=== PATIENT | female | born 1935 | race Caucasian/White ===

== ENCOUNTER → 2018-02-25 | Outpatient (CLI) | payer OTHER ==
[~2018-02-25] MED LIST: PREDNISONE 1 MG1 M1 PO; RAYOS2 MG PO; VITAMIN B-12500 MCG PO; VITAMIN D1000 UNI1 PO; VITAMINC500 PO
--- NOTE | 2018-02-25 13:10 | 2DMMODE ---
[place] [address] 2 D/M-MODE ECHOCARDIOGRAM Name: ROSA ELENA PRAKASH [id number] Admission: 02/25/18 Attend Phys: Joel Roth Discharge: Date of : 37 Date of Service: 02/25/18 1309 Report #: [id number] THIS REPORT FOR: //name// APPROVED REPORT Study performed: 02/25/2018 09:10:27 EXAM: Comprehensive 2D, Doppler, and color-flow Echocardiogram Patient Location: Out-Patient Status: routine BSA: 1.76 HR: 58 bpm BP: 120/72 mmHg Other Information Study Quality: Good Indications Syncope 2D Dimensions LVEF(%): 75.64 (>50%) IVSd: 9.14 (7-11mm) LVOT Diam: 20.11 (18-24mm) LVDd: 37.57 mm PWd: 9.98 (7-11mm) Ascending Ao: 31.52 (22-36mm) LVDs: 21.16 (25-40mm) Aortic Root: 23.23 mm Bragg's LVEF: 75.64 % Volumes Left Atrial Volume (Systole) LA ESV Index: 9.30 mL/m2 Aortic Valve AoV Peak Arash.: 1.03 m/s AO Peak Gr.: 4.27 mmHg LVOT Max P.54 mmHg AO Mean Gr.: 2.15 mmHg LVOT Mean P.96 mmHg LVOT Max V: 1.07 m/s AO V2 VTI: 20.56 cm LVOT Mean V: 0.63 m/s RICHARD (VTI): 3.54 cm2 LVOT V1 VTI: 22.94 cm Mitral Valve E/A Ratio: 0.72 MV Decel. Time: 269.35 [place] [address] 2 D/M-MODE ECHOCARDIOGRAM Name: ROSA ELENA PRAKASH Room: [facility]#: [id number] Admission: 02/25/18 Attend Phys: Joel Roth Discharge: Date of : 37 Date of Service: 02/25/18 1309 Report #: [id number] MV E Max Arash.: 0.42 m/s MV PHT: 78.11 ms MVA (PHT): 2.82 cm2 TDI E/Lateral E': 4.67 E/Medial E': 7.00 Medial E' Arash.: 0.06 m/s Lateral E' Arash.: 0.09 m/s Pulmonary Valve PV Peak Arash.: 1.05 m/s PV Peak Gr.: 4.42 mmHg Tricuspid Valve TR Peak Gr.: 20.56 mmHg RVSP: 25.56 mmHg Left Ventricle The left ventricle is normal size. There is normal LV segmental wall motion. There is normal left ventricular wall thickness. Left ventricular systolic function is normal. The left ventricular ejection fraction is within the normal range. LVEF is 55-60%. Grade I - abnormal relaxation pattern. Right Ventricle The right ventricle is normal size. The right ventricular systolic function is normal. Atria The left atrium size is normal. The right atrium size is normal. Aortic Valve Mild aortic valve sclerosis. Trace aortic regurgitation. There is no aortic valvular stenosis. Mitral Valve The mitral valve is normal in structure. There is no mitral valve regurgitation noted. No evidence of mitral valve stenosis. Tricuspid Valve The tricuspid valve is normal in structure. Mild tricuspid regurgitation. The RVSP is __25.6 mmHg. Pulmonic Valve The pulmonary valve is normal in structure. There is no pulmonic [place] [address] 2 D/M-MODE ECHOCARDIOGRAM Name: ROSA ELENA PRAKASH Room: [facility]#: [id number] Admission: 02/25/18 Attend Phys: Joel Roth Discharge: Date of : 37 Date of Service: 02/25/18 1309 Report #: [id number] Great Vessels The aortic root is normal in size. IVC is normal in size and collapses with >50% inspiration Pericardium There is no pericardial effusion. <Conclusion> The left ventricle is normal size. There is normal left ventricular wall thickness. Left ventricular systolic function is normal. The left ventricular ejection fraction is within the normal range. LVEF is 55-60%. Grade I - abnormal relaxation pattern. The right ventricle is normal size. The left atrium size is normal. Mild aortic valve sclerosis. Trace aortic regurgitation. The mitral valve is normal in structure. The tricuspid valve is normal in structure. Mild tricuspid regurgitation. The RVSP is __25.6 mmHg. IVC is normal in size and collapses with >50% inspiration There is no pericardial effusion. There is normal LV segmental wall motion. <ELECTRONICALLY SIGNED> By: Thomas Strong MD, FACC 02/25/18 1309 1309 1309 Thomas Strong MD, FACC /INF
== END ==
LOC: M.CRD 09:00
DX: R55 Syncope and collapse (principal); Z88.6 Allergy status to analgesic agent

== ENCOUNTER → 2018-04-15 | Outpatient (CLI) | payer OTHER | LOC: M.RAD 09:11 | DX: Z12.31 Encounter for screening mammogram for malignant neoplasm of breast (principal) ==

== ENCOUNTER → 2018-07-25 | Outpatient (CLI) | payer OTHER | LOC: M.RAD 11:04 | DX: M11.261 Other chondrocalcinosis, right knee (principal) ==

== ENCOUNTER → 2018-09-19 | Outpatient (CLI) | payer OTHER | LOC: M.RAD 09:00 | DX: M85.89 Other specified disorders of bone density and structure, multiple sites (principal); E28.39 Other primary ovarian failure; Z78.0 Asymptomatic menopausal state; Z90.722 Acquired absence of ovaries, bilateral ==

== ENCOUNTER → 2019-02-26 | Outpatient (CLI) | payer OTHER ==
--- NOTE | 2019-02-26 10:25 | 2DMMODE ---
[place] [address] 2 D/M-MODE ECHOCARDIOGRAM Name: ROSA ELENA PRAKASH Room: [facility]#: [id number] Admission: 02/26/19 Attend Phys: Joel Roth Discharge: Date of : 37 Date of Service: 02/26/19 1024 Report #: [id number] THIS REPORT FOR: //name// APPROVED REPORT Study performed: 02/26/2019 09:10:09 EXAM: Comprehensive 2D, Doppler, and color-flow Echocardiogram Patient Location: Out-Patient BSA: 1.77 HR: 70 bpm BP: 120/72 mmHg Other Information Study Quality: Good Indications Syncope 2D Dimensions IVSd: 10.96 (7-11mm) LVOT Diam: 20.88 (18-24mm) LVDd: 32.18 mm PWd: 10.28 (7-11mm) Ascending Ao: 33.43 (22-36mm) LVDs: 20.68 (25-40mm) Aortic Root: 21.54 mm Volumes Left Atrial Volume (Systole) LA ESV Index: 15.10 mL/m2 Aortic Valve AoV Peak Arash.: 0.99 m/s AO Peak Gr.: 3.92 mmHg LVOT Max P.79 mmHg AO Mean Gr.: 2.20 mmHg LVOT Mean P.65 mmHg LVOT Max V: 0.97 m/s AO V2 VTI: 20.26 cm LVOT Mean V: 0.58 m/s RICHARD (VTI): 3.59 cm2 LVOT V1 VTI: 21.25 cm Mitral Valve E/A Ratio: 0.72 MV Decel. Time: 273.50 ms MV E Max Arash.: 0.49 m/s MV PHT: 79.31 ms MVA (PHT): 2.77 cm2 [place] [address] 2 D/M-MODE ECHOCARDIOGRAM Name: ROSA ELENA PRAKASH Room: [facility]#: [id number] Admission: 02/26/19 Attend Phys: Joel Roth Discharge: Date of : 37 Date of Service: 02/26/19 1024 Report #: [id number] TDI E/Lateral E': 7.00 E/Medial E': 6.13 Medial E' Arash.: 0.08 m/s Lateral E' Arash.: 0.07 m/s Pulmonary Valve PV Peak Arash.: 0.95 m/s PV Peak Gr.: 3.60 mmHg Tricuspid Valve RAP Estimate: 5.00 mmHg TR Peak Gr.: 21.95 mmHg RVSP: 26.95 mmHg PA Pressure: 26.95 mmHg Left Ventricle The left ventricle is normal size. There is normal LV segmental wall motion. There is normal left ventricular wall thickness. Left ventricular systolic function is normal. The left ventricular ejection fraction is within the normal range. LVEF is 55-60%. Grade I - abnormal relaxation pattern. Right Ventricle The right ventricle is normal size. The right ventricular systolic function is normal. Atria The left atrium size is normal. The right atrium size is normal. Aortic Valve The aortic valve is normal in structure. Trace aortic regurgitation. There is no aortic valvular stenosis. Mitral Valve The mitral valve is normal in structure. There is no mitral valve regurgitation noted. No evidence of mitral valve stenosis. Tricuspid Valve The tricuspid valve is normal in structure. Mild tricuspid regurgitation. Pulmonic Valve The pulmonary valve is normal in structure. There is no pulmonic valvular regurgitation. [place] [address] 2 D/M-MODE ECHOCARDIOGRAM Name: ROSA ELENA PRAKASH Room: [facility]#: [id number] Admission: 02/26/19 Attend Phys: Joel Roth Discharge: Date of : 37 Date of Service: 02/26/19 1024 Report #: [id number] The aortic root is normal in size. IVC is normal in size and collapses >50% with inspiration. Pericardium There is no pericardial effusion. <Conclusion> The left ventricle is normal size. There is normal left ventricular wall thickness. Left ventricular systolic function is normal. The left ventricular ejection fraction is within the normal range. LVEF is 55-60%. Grade I - abnormal relaxation pattern. The right ventricle is normal size. The left atrium size is normal. The aortic valve is normal in structure. Trace aortic regurgitation. There is no aortic valvular stenosis. The mitral valve is normal in structure. There is no mitral valve regurgitation noted. The tricuspid valve is normal in structure. Mild tricuspid regurgitation. IVC is normal in size and collapses >50% with inspiration. There is no pericardial effusion. There is normal LV segmental wall motion. <ELECTRONICALLY SIGNED> By: Thomas Strong MD, FACC 02/26/19 1024 1024 1024 Thomas Strong MD, FACC /INF
== END ==
LOC: M.CRD 09:00
DX: I07.1 Rheumatic tricuspid insufficiency (principal); I95.1 Orthostatic hypotension; Z88.8 Allergy status to other drugs, medicaments and biological substances

== ENCOUNTER → 2019-08-04 | Outpatient (CLI) | payer OTHER ==
[~2019-08-04] MED LIST changes: +NORCO 5-325 TA1 EACH PO; +PREDNISONE 5 MG5 M1 PO
== END ==
LOC: M.RAD 09:40
DX: Z12.31 Encounter for screening mammogram for malignant neoplasm of breast (principal)

== ENCOUNTER → 2020-08-09 | Outpatient (CLI) | payer MEDICARE | LOC: M.RAD 09:16 | PROVIDERS: ATTEND Family Medicine | DX: Z12.31 Encounter for screening mammogram for malignant neoplasm of breast (principal) ==

== ENCOUNTER → 2020-12-03 | Outpatient (CLI) | payer MEDICARE | LOC: M.RAD 10:00 | PROVIDERS: ATTEND Internal Medicine | DX: M85.88 Other specified disorders of bone density and structure, other site (principal); N95.1 Menopausal and female climacteric states ==

== ENCOUNTER → 2021-06-09 | Outpatient (CLI) | payer MEDICARE | LOC: M.ULTRA 09:00 | PROVIDERS: ATTEND Family Medicine | DX: M47.816 Spondylosis without myelopathy or radiculopathy, lumbar region (principal); I65.23 Occlusion and stenosis of bilateral carotid arteries; I77.6 Arteritis, unspecified ==